=== PATIENT | female | born 1985 | race Caucasian/White ===

== ENCOUNTER 2023-06-11 22:53 | Emergency (ER) | payer OTHER ==
[~2023-06-11] VITALS: Ht 170.2 cm; Wt 74.8 kg
[2023-06-11 23:05] VITALS: BP_SYST 106; PULSE 59; RESP 16; TEMP 97.6; O2SAT 99
[2023-06-11 23:33] LABS: BILIRUBIN,URINE NEGATIVE (NEGATIVE); BLOOD, URINE 3+ (NEGATIVE); CLARITY/URINE CLOUDY (CLEAR); COLOR,URINE YELLOW (YELLOW); GLUCOSE,URINE NEGATIVE (NEGATIVE); KETONES,URINE NEGATIVE (NEGATIVE); LEUKOCYTE ESTERASE ,URINE 3+ (NEGATIVE); NITRITE, URINE POSITIVE (NEGATIVE); PH,URINE 6.5 (5.0-8.0); PROTEIN URINE 2+ (NEGATIVE); UROBILINOGEN,URINE 0.2 (0.2-1.0)
[2023-06-11 23:39] LABS: WBC,URINE >100 /HPF (0-3)
[2023-06-11 23:40] LABS: BACTERIA,URINE MANY /HPF (None Seen)
[2023-06-12] MEDS ORDERED: cefTRIAXone 1 GM in LIDOCAINE 1%, 20 ML MDV 2.1 ML IM ONE ×2
[2023-06-12] MEDS ORDERED: KETOROLAC TROMETHAMINE 60 MG/2 ML VIAL IM ONE
[2023-06-12] MEDS ORDERED: CIPR500T5 PO (00:48)
[2023-06-12] MEDS ORDERED: NAPR-1172 PO (00:48)
[2023-06-12 00:51] VITALS: BP_SYST 108; PULSE 61; RESP 17; TEMP 97.7; O2SAT 98
== END 2023-06-12 00:51 | disposition home or self-care (01) ==
LOC: SED 22:53
DX: N39.0 Urinary tract infection, site not specified (principal); R35.0 Frequency of micturition; R10.9 Unspecified abdominal pain; M54.50 Low back pain, unspecified; R30.9 Painful micturition, unspecified; Z79.899 Other long term (current) drug therapy
CPT/HCPCS: 99283; 81001; 87086; 81025; 81000; 96372; 81015; J0696; J2001; J1885